=== PATIENT | male | born 2005 | race Caucasian/White ===

== ENCOUNTER 2023-06-21 12:02 | Emergency (ER) | payer OTHER, SELFPAY ==
[2023-06-21 12:16] VITALS: BP 105/61; PULSE 57; RESP 16; TEMP 36.3; O2SAT 100
--- NOTE | 2023-06-21 12:30 | ED.URI ---
HPI - URI/Sore Throat General Chief Complaint: Upper Respiratory Infection Stated Complaint: sorethroat Time Seen by Provider: 06/21/23 12:31 History of Present Illness HPI Narrative: 18-year-old male presented for complaint of sore throat, headache, fatigue, sinus pressure/congestion, cough. Onset 3 days. Denies sick contacts. Took ibuprofen for symptoms. Denies sob, wheezing, n/v/d/f/c. Related Data Allergies Allergy/AdvReac Type Severity Reaction Status Date / Time No Known Allergies Allergy Unverified 02/12/23 08:11 Review of Systems Review of Systems: CONSTITUTIONAL: Denies body aches, fever, chills, or sweats. EYES: Denies visual changes, redness, or discharge. ENT: reports sore throat, rhinorrhea, congestion. RESPIRATORY: Denies dyspnea. GASTROINTESTINAL: Denies abdominal pain, nausea, vomiting, or diarrhea. SKIN: Denies rash, itching, or wounds. MUSCULOSKELETAL: Denies back pain, joint pain, or myalgia. NEUROLOGIC: Reports headache PMFSH Past Medical History Medical History (Updated 06/21/23 @ 12:49 by Bonnie Li, LEANN) No pertinent past medical history Social History Social History (Updated 06/21/23 @ 12:37 by Bonnie Li APRN) Tobacco type: e-cigarettes/vaping Second hand tobacco smoke exposure: Yes Exam Narrative: GENERAL: Mildly ill-appearing, no acute distress. EYES: conjunctivae clear ENT: Mucous membranes moist. TM pearly blair with normal light reflex bilaterally; no tragal tenderness. Oropharynx erythematous without lesions. Tonsils enlarged 2+ and without exudate. No drooling, no hoarseness, no trismus, uvula midline. No tripod positioning, hot potato voice, or soft palate swelling. NECK: Supple. No lymphadenopathy CHEST: Clear to auscultation, breath sounds equal. No respiratory distress, speaks in full sentences. HEART: Regular rate and rhythm. No murmur heard. SKIN: Warm, dry, no rash. NEURO: Alert and oriented x3. Course Course Emergency Course: Patient is aware of diagnosis, understands and agrees to treatment plan. Anticipatory guidance given. Patient agrees to follow-up as directed and is aware of reasons to seek care at the emergency department. Portions of this record may have been created with voice recognition software [employer] of Care: Express Care Visit Vital Signs Vital signs: Vital Signs Temperature 97.3 F L 06/21/23 12:16 Pulse Rate 57 L 06/21/23 12:16 Respiratory Rate 16 06/21/23 12:16 Blood Pressure 105/61 06/21/23 12:16 Pulse Oximetry 100 06/21/23 12:16 Oxygen Delivery Room Air 06/21/23 12:16 Temperature 97.3 F L 06/21/23 12:16 Pulse Rate 57 L 06/21/23 12:16 Respiratory Rate 16 06/21/23 12:16 Blood Pressure 105/61 06/21/23 12:16 Pulse Oximetry 100 06/21/23 12:16 Oxygen Delivery Room Air 06/21/23 12:16 MDM - URI/Sore Throat MDM Narrative Medical decision making narrative: Neg covid, Neg strep result reviewed with pt. Faint line detected for strep, and based on CC/PE will treat for strep. Advise supportive treatments. Patient is appropriate for outpatient treatment and follow-up. Differential Diagnosis Differential diagnosis: Likely upper respiratory infection, viral infection and pharyngitis Discharge Plan Discharge Clinical Impression: Upper respiratory infection Qualifiers: URI type: unspecified URI Qualified Code(s): J06.9 - Acute upper respiratory infection, unspecified Patient Disposition: Home, Self-Care Condition: Stable Instructions: Antibiotic Form, Strep Throat (ED) Additional Instructions: COVID negative Treatment for strep throat: - Take the antibiotic as directed. Fever and sore throat typically resolve within one to three days. Most patients can return to work, after 12 to 24 hours of antibiotic therapy, provided you are fever free and otherwise well. -Eat and drink things that are easy to swallow, like soft foods, cool liquids, tea with honey, or popsicl
== END 2023-06-21 12:56 | disposition home or self-care (01) ==
PROVIDERS: Emergency Provider Nurse Practitioner Family
DX: J06.9 Acute upper respiratory infection, unspecified (principal); F17.290 Nicotine dependence, other tobacco product, uncomplicated; Z20.822 Contact with and (suspected) exposure to COVID-19
CPT/HCPCS: 87081; 87426; 87880; 99213; C9803; G0463